=== PATIENT | female | born 1975 | race Caucasian/White ===

== ENCOUNTER 2017-12-09 22:00 | Emergency (ER) | payer OTHER, MEDICAID ==
[~2017-12-09] VITALS: Ht 160 cm; Wt 59.0 kg
[~2017-12-09 22:00] MED LIST: ACTICIN 5% CREA60 G1 TOP; BACTRIM DS TAB1 EACH PO; CYMBALTA; DIPHENHYDRAMINE25 M4 PO; DOLOPHINE HCL10 MG; HYDROXYZINE HCL25 M1 GT; MEDROL DOSPAK21 TA1 PO; NORCO 5-325 TA1 EACH PO; PREDNISONE 20 M20 M1 PO; PREDNISONE50 MG PO; TOBREX5 ML OP; VICODIN
[2017-12-09 22:57] LABS: ABSOLUTE BASOPHILS 0.1 thou/uL (0.0-0.2); ABSOLUTE EOSINOPHILS 0.3 thou/uL (0.0-0.7); ABSOLUTE MONOCYTES 0.6 thou/uL (0.0-1.2); ABSOLUTE NEUTROPHILS 6.4 thou/uL (1.6-8.1); EOSINOPHILS 3.1 %; HEMATOCRIT 36.4 % (37.0-47.0); HEMOGLOBIN 12.2 gm/dL (12.0-15.0); LYMPHOCYTES 21.2 %; MCH 28.7 pg (26.0-34.0); MCHC 33.6 g/dL (28.0-37.0); MCV 85.3 fL (80.0-100.0); MONOCYTES 6.5 %; MPV 8.6 fl. (7.2-11.1); NUCLEATED RBCS 0 /100WBC; PLATELET COUNT* 237 thou/uL (150-400); POLYS 68.2 %; RBC 4.27 mil/uL (4.20-5.00); RDW-CV 12.9 % (10.5-14.5); WBC 9.4 thou/uL (4.0-11.0)
[2017-12-09 23:08] LABS: CALCIUM 8.4 mg/dL (8.5-10.1); CREATININE 0.9 mg/dL (0.6-1.3); POTASSIUM 3.6 mmol/L (3.5-5.1)
[2017-12-09 23:12] LABS: ALBUMIN 3.5 g/dL (3.4-5.0); TOTAL BILIRUBIN 0.2 mg/dL (<0.1-1.0); TOTAL PROTEIN 6.8 g/dL (6.4-8.2)
[2017-12-10 00:56] LABS: URINE BILIRUBIN NEGATIVE (Negative); URINE BLOOD NEGATIVE (Negative); URINE CLARITY CLEAR; URINE COLOR YELLOW; URINE GLUCOSE-RANDOM NEGATIVE (Negative); URINE KETONES NEGATIVE (Negative); URINE LEUKOCYTES-REFLEX NEGATIVE (Negative); URINE NITRITE-REFLEX NEGATIVE (Negative); URINE PROTEIN NEGATIVE (Negative); URINE SPECIFIC GRAVITY 1.025 (1.005-1.030); URINE UROBILINOGEN 0.2 E.U./dl (0.2-1.0)
[2017-12-10 01:03] LABS: AMP/METHAMP Negative (Negative); BARBITURATES Negative (Negative); BENZODIAZEPINES Negative (Negative); COCAINE Negative (Negative); METHADONE POSITIVE (Negative); OPIATES Negative (Negative); PCP Negative (Negative); THC Negative (Negative)
[2017-12-10] MEDS ORDERED: CARAFATE 1 GM TA1 GM PO (01:27)
[2017-12-10] MEDS ORDERED: OMEPRAZOLE40 MG PO (01:27)
[2017-12-10 01:36] VITALS: BP 90/60
--- NOTE | 2017-12-10 13:36 | EKG ---
[place] [address] ELECTROCARDIOGRAM REPORT Name: KUNAMADO Yadira Room: [facility]#: [id number] Admission: 12/09/17 Attend Phys: Discharge: 12/10/17 Date of : 73 Report #: [id number] THIS REPORT FOR: //name// [facility] ED Test Date: 2017-12-09 Test Time: 22:10:24 Pat Name: AMADO TRISTAN Department: Room: Gender: F [employer]: : 1975 Requested By: Suzie Krueger Order Number: [id number] MD: Keanu Dinh Measurements Intervals [place] Rate: 71 P: 9 NV: 117 QRS: 76 QRSD: 70 T: 66 QT: 409 QTc: 445 Interpretive Statements Sinus rhythm Borderline short NV interval Compared to ECG 08/17/2007 19:19:47 Sinus tachycardia no longer present Electronically Signed On 12-10-2017 13:36:04 [employer] by Keanu Dinh [email or web address] <ELECTRONICALLY SIGNED> By: Keanu Dinh MD, [facility] 12/10/17 1336 2210 09 Keanu Dinh MD, FACC /EPI
== END 2017-12-10 01:36 | disposition home or self-care (01) ==
LOC: M.ERS 22:00
PROVIDERS: Personal Emergency Response Attendant
DX: R07.89 Other chest pain (principal); Z98.890 Other specified postprocedural states; Z87.891 Personal history of nicotine dependence; Z88.0 Allergy status to penicillin; Z88.8 Allergy status to other drugs, medicaments and biological substances